=== PATIENT | male | born 1970 | race Caucasian/White ===

== ENCOUNTER 2019-08-18 06:45 | Observation (INO) | payer OTHER ==
[2019-08-18] VITALS (10 sets, daily range): BP systolic 130–166; BP diastolic 60–98
[~2019-08-18] VITALS: Ht 180.3 cm; Wt 124.7 kg
--- NOTE | ~2019-08-18 | D ---
[facility] [address] [place] [address] DISCHARGE SUMMARY Name: HIRA DOYLE Room #: 208-P [facility]..#: [id number] Admission: 08/18/19 Attend Phys: Patrick Gale MD Discharge: Date of : 70 Report #: [id number] THIS REPORT FOR: cc: Yissel Rabago MD,Yissel Gale,Patrick Amaya MD ~ THIS REPORT FOR: //name// CC: Yissel Gale DISCHARGE DIAGNOSES: 1. Chronic systolic heart failure. 2. Nonischemic cardiomyopathy. 3. Left bundle-branch block. 4. [place] [employer] functional class II-III heart failure. PROCEDURE PERFORMED: Biventricular ICD implantation. HISTORY: The patient is a 49-year-old with chronic left ventricular systolic heart failure due to nonischemic causes as well as a left bundle-branch block and [place] [employer] functional class II-III heart failure, has been on optimal medical therapy for approximately 1 year, who is here for elective biventricular ICD implantation. The procedure was successful without any complications. HOSPITAL COURSE: The patient was monitored in the CCU overnight and did well. On the day of discharge, he denied any chest pain, fevers, chills, or shortness of breath. PHYSICAL EXAMINATION: GENERAL: No acute distress. HEART: Regular rate and rhythm. LUNGS: Clear to auscultation bilaterally. ABDOMEN: Soft, nontender, nondistended. EXTREMITIES: No clubbing, cyanosis, edema. SKIN: Incision healing nicely. Chest x-ray showed no pneumothorax and stable lead position. Device check showed normal device function with stable pacing, sensing thresholds. As such, the patient was deemed stable for discharge home. He was given a prescription for some pain medications. He will continue with his same [facility] [address] [place] [address] DISCHARGE SUMMARY Name: HIRA DOYLE Room #: 208-P [facility]#: [id number] Admission: 08/18/19 Attend Phys: Patrick Gale MD Discharge: Date of : 70 Report #: [id number] outpatient medications. Discharge instructions were reviewed and he will follow up in 7-10 days for site check and device check. By: 0830 0840 Patrick Gale MD /nt
--- NOTE | ~2019-08-18 | P ---
[facility] [place] [address] [address] [place] [address] PROCEDURE REPORT Name: HIRA DOYLE Room #: 208-P [facility] M.R.#: [id number] Admission: 08/18/19 Attend Phys: Patrick Gale MD Discharge: Date of : 70 Report #: [id number] THIS REPORT FOR: cc: Yissel Rabago MD,Yissel Gale,Patrick Amaya MD ~ CC: Yissel Gale DATE OF SERVICE: 08/18/2019 PROCEDURES PERFORMED: Biventricular ICD implantation. PREOPERATIVE DIAGNOSES: 1. Chronic left ventricular systolic heart failure. 2. Nonischemic cardiomyopathy. 3. Left bundle branch block. 4. [place] [employer] functional class II-III heart failure symptoms. HISTORY: The patient is a 49-year-old male with a history of chronic LV systolic heart failure with a nonischemic cardiomyopathy, EF of less than 35% with a left bundle branch block, QRS duration of 150 milliseconds with class II-III heart failure symptoms. He has been on optimal medical therapy for greater than 3 months. He is here for biventricular ICD implantation. ANESTHESIA: The patient underwent MAC anesthesia with no anesthesia related complications. DESCRIPTION OF PROCEDURE: The patient underwent informed consent. We discussed the details of the procedure including the risks, which include but not limited to bleeding, infection, vascular damage, cardiac perforation, and pneumothorax. He understood these risks and is willing to proceed. The patient was brought to the EP laboratory in a fasting and sedated state and prepped and draped in a sterile fashion. He underwent a venogram showing patency of the left axillary vein and received IV antibiotics prior to initiation of the procedure. Next, lidocaine was injected below the level of left clavicle. Incision was made and pocket was created over the prepectoral fascia. Next, I obtained access to left axillary vein x 3, placing sheaths using the modified Seldinger technique. I placed a single coil ICD lead into the right ventricular apex and an atrial lead into the right atrial appendage, both with adequate pacing and sensing thresholds. The leads were sutured to the prepectoral fascia. Next, a guide sheath was positioned into the coronary sinus with ease and the patient had evidence of a very low posterior lateral branch and there was also an anterolateral branch. There was nothing other than these 2 vessels. I was able to then get my guide sheath to go into this posterior [facility] [address] [place] [address] PROCEDURE REPORT Name: TONIDEE DEEMYRNAALLYHIRA Room #: 208-P [facility] [place] March#: [id number] Admission: 08/18/19 Attend Phys: Patrick Gale MD Discharge: Date of : 70 Report #: [id number] lateral branch versus a middle cardiac vein branch. The lead in this position had adequate pacing and sensing thresholds and there was no phrenic nerve capture other than at the most apical pacing configurations. The sheath was then split, the lead remained in position. This lead was sutured to the prepectoral fascia. All leads were connected to the device. Tug tests were performed. The pocket was irrigated with vancomycin and the pocket was closed in 2 layers using 2-0 for the deep layer, 3-0 for the middle layer, and surgical glue was placed to outer skin layer. Of note, the coronary sinus venogram was performed using a balloon in the CS. The patient awoke neurologically and hemodynamically intact. No complications and no significant bleeding. The implanted device was a [employer], model #SEKH8BF, serial #[id number]. The leads were all [employer]. The atrial lead was a 5076, 52 cm with a P-wave of 6.8 millivolts, pacing impedance of 81 ohms and a pacing threshold of 0.3 volts at 0.5 milliseconds. The RV lead was a 6935, 62 cm, R waves of 8 millivolts, pacing impedance of 710 ohms, and the pacing threshold of 0.4 volts at 0.5 milliseconds. The LV lead was a 4998, serial #[id number]. The pacing impedance was 936 ohms and the pacing threshold was 0.5 volts at 0.5 milliseconds. The LV lead was programmed to pace 30 milliseconds prior to the RV lead and we paced from the most basal pacing configuration. This resulted in improvement of his QRS duration from 150 milliseconds down to 105 milliseconds. The device was programmed to the DDDR 60-130 mode. The VT zone was set at 180-220 beats per minute with burst x 3 followed by ramp x 3 followed by max output shocks. The VF zone was set at greater than 220 beats per minute with ATP while charging followed by max output shocks. CONCLUSIONS: 1. Successful Bi-V ICD implantation. 2. Satisfactory atrial, right ventricular, and left ventricular pacing and sensing thresholds. By: 1306 1352 Patrick Gale MD /nt
[2019-08-18] MEDS ORDERED: ASPIR 8181 M1 PO (07:46)
[2019-08-18] MEDS ORDERED: SYMBICORT80 MCG/4.1 INH (07:46)
[2019-08-18] MEDS ORDERED: CARVEDILOL25 MG PO (07:47)
[2019-08-18] MEDS ORDERED: FLUOXETINE HCL60 MG PO (07:49)
[2019-08-18] MEDS ORDERED: PRILOSEC OTC20 MG PO (07:50)
[2019-08-18] MEDS ORDERED: COZAAR 50 MG TA50 M1 PO (07:50)
[2019-08-18] MEDS ORDERED: SPIRONOLACTONE25 M1 PO (07:51)
[2019-08-18] MEDS ORDERED: ANDROGEL5 GM TRANSDERM (07:52)
[2019-08-18 07:59] LABS: HEMATOCRIT 47.1 % (42.0-52.0); MCH 32.2 pg (26.0-34.0); MCHC 33.9 g/dL (28.0-37.0); MCV 94.8 fL (80.0-100.0); RBC 4.97 mil/uL (4.50-6.00); RDW 13.1 % (10.5-14.5); WBC 4.7 thou/uL (4.0-11.0)
[2019-08-18 08:11] LABS: CALCIUM 9.3 mg/dL (8.5-10.1); CREATININE 1.8 mg/dL (0.7-1.3); POTASSIUM 3.8 mmol/L (3.5-5.1); PROTIME 10.2 Seconds (9.3-11.4)
[2019-08-18 08:13] LABS: APTT 40.8 Seconds (24.5-32.8)
[2019-08-18 08:17] LABS: ALBUMIN 4.3 g/dL (3.4-5.0); TOTAL BILIRUBIN 0.5 mg/dL (0.2-1.0); TOTAL PROTEIN 7.7 g/dL (6.4-8.2)
[2019-08-18 08:41] LABS: ABSOLUTE NEUTROPHILS 2.6 thou/uL (1.4-8.2); LARGE PLATELETS OCCASIONAL
[2019-08-18 10:22] LABS: PLATELET COUNT 204 thou/uL (150-400)
--- NOTE | 2019-08-18 18:21 | NUR ---
TO UNIT BY BED AT 1100, REPORT FROM RN. LLOYD, MILD HTN NOTED. DENIED CP. AV PACED PER TELE. SAT 98% ON RA. ORIENTED TO UNIT, FALL RISK, PATIENT RESPONSIBILITIES. WILL CONTINUE TO FOLLOW CLOSELY.
[2019-08-19 04:45] VITALS: BP 139/74
--- NOTE | 2019-08-19 06:23 | NUR ---
ASSESSMENTS CHARTED, MEDS CHARTED GIVEN. ON BEDREST DURING SHIFT POST ICD/PM PLACEMENT. A PACED OR AV PACED ON TELEMETRY. ON ROOM AIR. USING URINAL IN IMMOBILIZER DURING SHIFT. LEFT CHEST INCISION SITE, C/O PAIN ONCE DURING SHIFT. FALL PRECAUTIONS IN PLACE.
[2019-08-19 08:36] VITALS: BP 153/84
[2019-08-19 09:36] VITALS: BP 141/78
--- NOTE | 2019-08-19 10:46 | NUR ---
IMMOBOLIZER ON PT. AT THIS TIME WHILE AWAKE. LEFT INSERTION SITE OF ICD IS OPEN TO AIR, NO EXUDATE, NO HEMATOMA PALPATED AROUND SITE. PT. REPORTS ONLY VERY MILD DISCOMFORT AT SITE WITH MOVEMENT ONLY WHEN MOVING HIS LEFT ARM AROUND. TECH'S CAME IN TO EVALUTE THE ICD/PACEMAKER AND TOLD ME 'EVERYTHING IS FINE". INSTRUCTIONS GIVEN FOR DISCHARGE TODAY. REVIEWED WITH HIM NOT TO BATHE OR GET THE SITE WET FOR ONE WEEK, NO LIFTING UNLESS FOLLOWING INSTRUCTIONS ON THE SHEET, HE AGREED TO SUCH. PT. IS VERY COMPLIANT OVERALL AND INTERESTED IN HIS CARE AND HELPFUL. DENIES ANY FEELINGS OF BEING SOB.
--- NOTE | 2019-08-19 11:00 | NUR ---
PT. IS AOX4. CALLED HIS DAUGHTER AT THIS TIME FOR A RIDE HOME TODAY. DENIES AN CP, DENIES ANY SOB. REVIEWED HIS DIAGNOSIS OF CHF WELL AND FOODS TO AVOID, ETC. AV PACED AND 100% FIRING FOR AV AND VENTRICLE.
== END 2019-08-19 12:10 | disposition home or self-care (01) ==
LOC: CATH 06:45 → LAB 07:29 → CATH 09:18 → 2N 11:07 → LAB 12:36 → 2N 08-19 12:10
PROVIDERS: ADMIT Internal Medicine Cardiovascular Disease; ATTEND Internal Medicine Cardiovascular Disease
DX: Z03.818 Encounter for observation for suspected exposure to other biological agents ruled out (principal); I50.1 Left ventricular failure, unspecified; I42.8 Other cardiomyopathies; I50.22 Chronic systolic (congestive) heart failure; I44.7 Left bundle-branch block, unspecified

== ENCOUNTER → 2019-11-18 | Outpatient (CLI) | payer OTHER ==
[~2019-11-18] MED LIST: ANDROGEL5 GM TRANSDERM; ASPIR 8181 M1 PO; CARVEDILOL25 MG PO; COZAAR 50 MG TA50 M1 PO; FLUOXETINE HCL60 MG PO; PRILOSEC OTC20 MG PO; SPIRONOLACTONE25 M1 PO; SYMBICORT80 MCG/4.1 INH
== END ==
LOC: SJCVCIMAG 08:42
PROVIDERS: ATTEND Internal Medicine Cardiovascular Disease
DX: I11.9 Hypertensive heart disease without heart failure (principal); I27.20 Pulmonary hypertension, unspecified

== ENCOUNTER → 2021-01-04 | Outpatient (CLI) | payer OTHER | LOC: SJCVCIMAG 08:03 | PROVIDERS: ATTEND Internal Medicine Cardiovascular Disease | DX: I51.7 Cardiomegaly (principal); I48.91 Unspecified atrial fibrillation; E66.9 Obesity, unspecified; G47.33 Obstructive sleep apnea (adult) (pediatric); I44.7 Left bundle-branch block, unspecified; I42.9 Cardiomyopathy, unspecified; Z95.0 Presence of cardiac pacemaker ==

== ENCOUNTER 2021-03-20 12:31 | Inpatient (IN) | payer OTHER ==
[~2021-03-20] VITALS: Ht 177.8 cm; Wt 122.5 kg
[2021-03-20 13:26] LABS: ABSOLUTE NEUTROPHILS 5.7 thou/uL (1.4-8.2); BASOPHILS 0.6 % (0.0-2.0); EOSINOPHILS 0.5 % (0.0-3.0); HEMATOCRIT 45.9 % (42.0-52.0); HEMOGLOBIN 14.7 gm/dL (14.0-18.0); LYMPHOCYTES 14.3 % (24.0-44.0); MCH 25.7 pg (26.0-34.0); MONOCYTES 8.7 % (1.0-8.0); PLATELET COUNT 152 thou/uL (150-400); POLYS 75.9 % (36.0-66.0); RBC 5.74 mil/uL (4.50-6.00); RDW 20.2 % (10.5-14.5); WBC 7.5 thou/uL (4.0-11.0)
[2021-03-20 13:47] LABS: CALCIUM 8.8 mg/dL (8.5-10.1); CREATININE 1.5 mg/dL (0.7-1.3); POTASSIUM 3.6 mmol/L (3.5-5.1)
[2021-03-20 13:53] LABS: AMP/METHAMP Negative (Negative); BARBITURATES Negative (Negative); BENZODIAZEPINES Negative (Negative); COCAINE Negative (Negative); METHADONE Negative (Negative); OPIATES Negative (Negative); PCP Negative (Negative)
[2021-03-20 13:57] LABS: ALBUMIN 3.9 g/dL (3.4-5.0); MAGNESIUM 1.8 mg/dL (1.8-2.4); TOTAL BILIRUBIN 0.5 mg/dL (0.2-1.0); TOTAL PROTEIN 7.3 g/dL (6.4-8.2)
[2021-03-20 15:03] LABS: MACROCYTES 1+; MICROCYTES 2+
[2021-03-20 19:04] VITALS: BP 105/71
[2021-03-20 20:49] VITALS: BP 91/54
[2021-03-21 00:02] VITALS: BP 106/67
[2021-03-21 04:12] VITALS: BP 99/60
[2021-03-21 05:59] LABS: HEMATOCRIT 40.6 % (42.0-52.0); HEMOGLOBIN 13.3 gm/dL (14.0-18.0); MCH 26.4 pg (26.0-34.0); MCHC 32.7 g/dL (28.0-37.0); MCV 80.7 fL (80.0-100.0); RBC 5.03 mil/uL (4.50-6.00); RDW 20.5 % (10.5-14.5); WBC 4.9 thou/uL (4.0-11.0)
[2021-03-21 06:10] LABS: CALCIUM 8.1 mg/dL (8.5-10.1); CREATININE 1.4 mg/dL (0.7-1.3); POTASSIUM 4.2 mmol/L (3.5-5.1)
[2021-03-21 09:32] VITALS: BP 119/87
--- NOTE | 2021-03-21 09:37 | NUR ---
PATIENT REPORTS OF FEELING MUCH BETTER THIS AM. PATIENT ATE BREAKFAST AND HAS BEEN UP TO AMBULATE TO THE BR TO VOID. PATIENT DENIES ANY NEEDS OR CONCERNS AT THIS TIEM. [facility] AND WILL CONTINUE TO MONITOR.
--- NOTE | 2021-03-21 11:36 | NUR ---
DOCTOR ORDERED A DEVICE CHECK TO PATIENTS PACEMAKER. DOCTOR VERBALIZED DISCHARGE FOR PATIENT AND THAT HE WOULD GET THAT IN THE COMPUTER. AWAITING ON DISCHARGE ORDERS FOR PATIENT.
[2021-03-21] MEDS ORDERED: XARELTO20 MG PO (11:57)
[2021-03-21 12:16] VITALS: BP 124/88
--- NOTE | 2021-03-22 07:38 | EKG ---
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 03/22/21 0738 1234 1234 Ronnell Nesbitt MD, FACC /EPI
== END 2021-03-21 12:38 | disposition home or self-care (01) | DRG 309 ==
LOC: ER 12:31 → EROBS 22:14
PROVIDERS: Emergency Medicine; ADMIT Hospitalist; ATTEND Hospitalist
DX: I48.0 Paroxysmal atrial fibrillation (principal); I50.22 Chronic systolic (congestive) heart failure; F10.239 Alcohol dependence with withdrawal, unspecified; I42.8 Other cardiomyopathies; I48.92 Unspecified atrial flutter; I11.0 Hypertensive heart disease with heart failure; Y90.2 Blood alcohol level of 40-59 mg/100 ml; E66.9 Obesity, unspecified; G47.33 Obstructive sleep apnea (adult) (pediatric); Z20.822 Contact with and (suspected) exposure to COVID-19; Z95.810 Presence of automatic (implantable) cardiac defibrillator; Z68.38 Body mass index [BMI] 38.0-38.9, adult; Z79.899 Other long term (current) drug therapy; Z63.5 Disruption of family by separation and divorce